=== PATIENT | male | born 1940 | race Caucasian/White ===

== ENCOUNTER 2016-12-10 07:25 | Day surgery (SDC) | payer BC ==
[2016-12-09 13:21] VITALS: BMI 35.2
[2016-12-10] MEDS ORDERED: MIDAZOLAM HCL 2 MG/2 ML SINGLE DOSE VIAL ONE ×2 (09:12)
[2016-12-10] MEDS ORDERED: oxyCODONE HCL 5 MG TABLET PO PRN (09:28)
[2016-12-10] MEDS ORDERED: ONDANSETRON 4 MG/2 ML VIAL IVPUSH PRN (09:28)
[2016-12-10] MEDS ORDERED: LACTATED RINGERS SOLUTION 1,000 ML IV SCH (09:30)
--- NOTE | 2016-12-10 09:43 | HP ---
Satellite H - Chief Complaint Chief Complaint: left ankle fx - Past Medical History Allergies/Adverse Reactions: Allergies Allergy/AdvReac Type Severity Reaction Status Date / Time No Known Allergies Allergy Verified 12/10/16 08:22 - Current Medications Current Medications: Home Medications Medication Instructions Recorded Felodipine [Plendil] 5 mg PO DAILY 05/25/15 Simvastatin [Zocor -] 10 mg PO HS 05/25/15 Hydrocodone/Acetaminophen [[place] 1 - 2 each PO Q6H #50 tablet MDD 8 12/10/16 5-325 Tablet] Ibuprofen [Advil -] 400 mg PO PRN PRN 12/10/16 Satellite Physical Exam - Physical Examination Vital Signs: Vital Signs Period Temp Pulse Resp BP Sys/[place] Pulse Ox Last 24 Hr 97.8 F-97.8 F 68-68 20-20 139-139/89-89 94 General Appearance: Well Nourished, Well Developed, Alert & Oriented x3 ENT: Clear Lung: Normal air movement Heart: Regular rate & rhythm Extremities: Other (left ankle swelling, ecchymosis, + ttp, dcr rom, nvi xrays show left distal fibula fx- displaced) Neurological: Intact, Alert, Oriented Satellite Impression/Plan - Impression/Plan Impression: left ankle fx Operative Procedure: left ankle orif Date to be Performed: 12/10/16
[2016-12-10] MEDS ORDERED: ceFAZolin SODIUM 1 GM VIAL ONE (09:49)
[2016-12-10] MEDS ORDERED: ceFAZolin SODIUM 1 GM VIAL IVPB ONE (09:55)
--- NOTE | 2016-12-10 10:40 | OP ---
Operative Note - Note: Operative Date: 12/10/16 Pre-Operative Diagnosis: left ankle fibula fracture Operation: left ankle ORIF, fibula Implants: [place] low profile titanium distal fibular plate Surgeon: Justo Ha Lotus Notes Developer: Mainor De La Garza Anesthesiologist/DETECTIVE: Doris Baptiste Anesthesia: General, Spinal Estimated Blood Loss (mls): 0 Drains, Volume Out (mls): 0 Blood Volume Replaced (mls): 0 Fluid Volume Replaced (mls): 500 Operative Report Dictated: Yes
[2016-12-10 13:14] VITALS: TEMP 97.4
[2016-12-10 14:36] VITALS: BP 142/82; PULSE 80
--- NOTE | 2016-12-11 08:02 | OP ---
DATE OF OPERATION: 12/10/2016 PREOPERATIVE DIAGNOSIS: Left ankle distal fibular fracture. POSTOPERATIVE DIAGNOSIS: Left ankle distal fibular fracture. PROCEDURE: Left ankle open reduction internal fixation, lateral malleolus. SURGEON: Luisana Barry MD LOG POND WORKER: YAA Solitario. FINANCE ASSISTANT: Doris Baptiste CRNA ANESTHESIA: Spinal anesthesia with sedation. DRAINS: None. COMPLICATIONS: None. SPECIMENS: None. BLOOD LOSS: None. BLOOD GIVEN: None. FLUID REPLACEMENT: 500 mL. INDICATIONS: This patient is a 76-year-old male with a preoperative diagnosis of a displaced left ankle distal fibular fracture. After understanding the potential risks, complications, alternatives, and benefits of surgery versus nonsurgical treatment, the patient elected to undergo this procedure. I spoke with his family, as well. They all understand the potential risks and complications. DESCRIPTION OF PROCEDURE: The patient was brought to the operating room. Peripheral IV placed. IV sedation given. IV Ancef, 2 g, was given. Spinal anesthesia was induced. Mild IV sedation was given. Tourniquet was applied to the left upper thigh. A bump was placed under the left aby-pelvis. Left lower extremity was prepped and draped in sterile fashion, elevated, exsanguinated with an Esmarch bandage. Tourniquet was inflated to 275 mmHg. A longitudinal incision was marked out with a marking pen and made with a No. 10 scalpel blade. Subcutaneous hemostasis was achieved with a Bovie cautery. Dissection done onto the distal fibula. Subperiosteal dissection was made with periosteal elevator. Periosteum and blunt hematoma and muscle debris were taken out of the fracture site. Reduction was performed. Irrigation was used to clean up the fracture site, and alligator forceps was used to do a reduction. X-rays were taken in multiple planes, and everything looked quite good in AP, lateral, and oblique planes. Medial aspect and ankle mortise looked good. The reduction looked quite good laterally. Therefore, a [place] low-profile titanium 6-0 plate was placed on and held in place with K-wires. Again, x-rays were taken, and I was quite happy with the position of the fracture fragments and the hardware, and therefore using the standard technique, I used a 2.5-mm drill bit to put in 3.5-mm screws. First I put in a lag screw, this was 22 mm in length, fully threaded, using the 2.5- and then the 3.5-mm drill bit in standard fashion. The clamps were removed, and this screw held the fracture in place. Next, I put on the plate and put in four fully threaded locking distal screws. I then put in three fully threaded 3.5-mm screws, one non-locking, two locking bicortical proximal to the fracture site. X-rays were taken multiple AP, lateral, and oblique planes. Overall, I was quite happy with the fracture fragments, the position of the ankle mortise and the hardware. Area was copiously irrigated and washed out. Closure was done with 0 Vicryl with the deep fascia over the plate, 2-0 Vicryl used to close the deep dermal layer. Final skin reapproximation was done with row of ellie. The area was then washed and dried and covered with Xeroform, 4x4 gauze, Webril, and a 6-inch Ortho-Glass. Posterior splint was applied, wrapped with two German bandages. The tourniquet was taken down after a total tourniquet time of 36 minutes. There were no complications during the case. Patient tolerated the procedure quite well and was brought to the ambulatory recovery room in stable condition. LUISANA BARRY M.D. [id number]
== END 2016-12-10 14:50 | disposition home or self-care (01) ==
LOC: JASU-SURG 07:25
PROVIDERS: ATTEND Orthopaedic Surgery
PROC: 0QSK04Z Reposition Left Fibula with Internal Fixation Device, Open Approach (ICD-10-PCS; principal; 2016-12-10 09:00)
DX: S82.492A Other fracture of shaft of left fibula, initial encounter for closed fracture (principal); X58.XXXA Exposure to other specified factors, initial encounter; Y93.9 Activity, unspecified; Y92.9 Unspecified place or not applicable; Y99.9 Unspecified external cause status
CPT/HCPCS: 76000-TC; 94760

== ENCOUNTER 2021-04-05 04:16 | Day surgery (SDC) | payer BC ==
[2021-04-02 15:28] VITALS: BMI 35.2
[~2021-04-05 04:16] MED LIST: DEXAMETHASONE SOD PHOSPHATE 10 MG/1 ML VIAL IVPUSH ONE; IOHEXOL 180 MG/1 ML ML IT ONE; LIDOCAINE 1% P/F 10 MG/ML VIAL INF ONE
[2021-04-05] MEDS ORDERED: LIDOCAINE HCL/PF 1% SDV 5ML VIAL ONE (07:34)
[2021-04-05] MEDS ORDERED: DEXAMETHASONE SOD PHOSPHATE 10 MG/1 ML VIAL ONE (07:34)
[2021-04-05] MEDS ORDERED: LIDOCAINE 1% P/F 10 MG/ML VIAL INF ONE (09:33)
[2021-04-05] MEDS ORDERED: IOHEXOL 180 MG/1 ML ML IT ONE (09:33)
[2021-04-05] MEDS ORDERED: DEXAMETHASONE SOD PHOSPHATE 10 MG/1 ML VIAL IVPUSH ONE (09:33)
[2021-04-05 10:03] VITALS: BP 143/78; PULSE 77; TEMP 98.4
== END 2021-04-05 10:30 | disposition home or self-care (01) ==
LOC: JASU-SURG 04:16
PROVIDERS: ATTEND Pain Medicine Pain Medicine
PROC: 3E0R33Z Introduction of Anti-inflammatory into Spinal Canal, Percutaneous Approach (ICD-10-PCS; 2021-04-05)
PROC: 3E0R3BZ Introduction of Anesthetic Agent into Spinal Canal, Percutaneous Approach (ICD-10-PCS; principal; 2021-04-05 08:45)
DX: M54.16 Radiculopathy, lumbar region (principal)
CPT/HCPCS: 76000-TC-FY; J1100

== ENCOUNTER 2021-05-07 04:41 | Day surgery (SDC) | payer BC ==
[2021-05-06 15:30] VITALS: BMI 30.4
[2021-05-07] MEDS ORDERED: IOHEXOL 180 MG/1 ML ML IJ ONE ×2 (11:17)
[2021-05-07] MEDS ORDERED: LIDOCAINE HCL 1% PRESERVATIVE FREE - 30ML VIAL INF ONE (11:17)
[2021-05-07] MEDS ORDERED: DEXAMETHASONE SOD PHOSPHATE 4 MG/1 ML VIAL IVPUSH ONE (11:18)
[2021-05-07 13:02] VITALS: BP 131/79; PULSE 83; TEMP 98
== END 2021-05-07 12:30 | disposition home or self-care (01) ==
LOC: JASU-SURG 04:41
PROVIDERS: ATTEND Pain Medicine Pain Medicine
PROC: 3E0R33Z Introduction of Anti-inflammatory into Spinal Canal, Percutaneous Approach (ICD-10-PCS; 2021-05-07)
PROC: 3E0R3BZ Introduction of Anesthetic Agent into Spinal Canal, Percutaneous Approach (ICD-10-PCS; principal; 2021-05-07 09:15)
DX: M54.16 Radiculopathy, lumbar region (principal)
CPT/HCPCS: 76000-TC-FY

== ENCOUNTER 2024-04-22 07:17 | Inpatient (IN) | payer BC, OTHER ==
[2024-04-22 07:40] LABS: BASO % 0.9 % (0-2.0); HEMATOCRIT 36.4 % (35.4-49); HEMOGLOBIN 12.6 GM/dL (11.7-16.9); LYMPH % 21.5 % (8-40); MCH 32.9 pg (25.7-33.7); MCHC 34.5 g/dl (32.0-35.9); MEAN CELL VOLUME 95.2 fl (80-96); MEAN PLT VOLUME 7.3 fl (7.5-11.1); MONO % 8.9 % (3.8-10.2); NEUT % 67.7 % (42.8-82.8); PLATELET COUNT 229 10^3/uL (134-434); RBC 3.82 M/mm3 (4.00-5.60); RDW 13.4 % (11.9-15.9); WHITE BLOOD COUNT 10.9 K/mm3 (4.0-10.0)
[2024-04-22 08:05] LABS: POTASSIUM 4.3 mmol/L (3.5-5.1)
[2024-04-22 08:12] LABS: ALBUMIN 3.9 g/dl (3.4-5.0); BLOOD UREA NITROGEN 18.6 mg/dL (7-18); CALCIUM 9.1 mg/dL (8.5-10.1)
[2024-04-22 08:15] LABS: CREATININE 0.9 mg/dL (0.55-1.3)
[2024-04-22 08:17] LABS: BILIRUBIN,TOTAL 0.5 mg/dL (0.2-1); TOT PROT 6.8 g/dl (6.4-8.2)
[2024-04-22 08:20] LABS: INR 1.03 (0.83-1.09); PROTHROMBIN TIME (PATIENT) 11.6 SEC (9.7-13.0)
[2024-04-22 08:23] LABS: ACTIVATED PTT 29.2 SECONDS (25.2-36.5)
[2024-04-22 12:20] LABS: BASO % 0.9 % (0-2.0); EOS % 0.3 % (0-4.5); HEMATOCRIT 34.2 % (35.4-49); HEMOGLOBIN 11.8 GM/dL (11.7-16.9); LYMPH % 20.3 % (8-40); MCH 32.4 pg (25.7-33.7); MCHC 34.5 g/dl (32.0-35.9); MEAN CELL VOLUME 93.9 fl (80-96); MEAN PLT VOLUME 6.9 fl (7.5-11.1); MONO % 8.1 % (3.8-10.2); NEUT % 70.4 % (42.8-82.8); PLATELET COUNT 227 10^3/uL (134-434); RBC 3.64 M/mm3 (4.00-5.60); RDW 13.7 % (11.9-15.9); WHITE BLOOD COUNT 10.1 K/mm3 (4.0-10.0)
[2024-04-22] MEDS ORDERED: ACETAMINOPHEN INJECTION 100 ML ONE (12:29)
[2024-04-22] MEDS: ACETAMINOPHEN 1000 MG/100 ML BAG IVPB ONE (12:37)
[2024-04-22 16:36] VITALS: BMI 31.6
[2024-04-23 08:47] LABS: BASO % 0.8 % (0-2.0); HEMATOCRIT 32.3 % (35.4-49); LYMPH % 24.6 % (8-40); MCH 32.8 pg (25.7-33.7); MEAN CELL VOLUME 96.4 fl (80-96); MEAN PLT VOLUME 7.5 fl (7.5-11.1); MONO % 10.1 % (3.8-10.2); NEUT % 63.5 % (42.8-82.8); PLATELET COUNT 203 10^3/uL (134-434); RBC 3.35 M/mm3 (4.00-5.60); RDW 13.6 % (11.9-15.9); WHITE BLOOD COUNT 7.2 K/mm3 (4.0-10.0)
[2024-04-23 09:11] LABS: POTASSIUM 3.7 mmol/L (3.5-5.1)
[2024-04-23 09:14] LABS: CALCIUM 8.9 mg/dL (8.5-10.1)
[2024-04-23 09:15] LABS: BLOOD UREA NITROGEN 10.5 mg/dL (7-18)
[2024-04-23 09:18] LABS: CREATININE 0.8 mg/dL (0.55-1.3)
[2024-04-23] MEDS ORDERED: ACETAMINOPHEN 325 MG TABLET (FP) PO PRN (10:43)
[2024-04-23] MEDS: POLYETHYLENE GLYCOL (HEALTHYLAX) 3350 17 GM PACKET PO SCH (15:51)
[2024-04-23] MEDS: amLODIPine BESYLATE 5 MG TABLET (FP) PO SCH (18:18)
[2024-04-24] MEDS: PEG 3350/NA SULF BICARB CL/KCL 4000 ML SOLN.RECON PO ONE (09:23)
[2024-04-24 09:50] LABS: BASO % 0.5 % (0-2.0); EOS % 1.6 % (0-4.5); HEMATOCRIT 34.4 % (35.4-49); HEMOGLOBIN 11.9 GM/dL (11.7-16.9); LYMPH % 25.9 % (8-40); MCH 32.9 pg (25.7-33.7); MCHC 34.6 g/dl (32.0-35.9); MEAN CELL VOLUME 95.2 fl (80-96); MEAN PLT VOLUME 7.5 fl (7.5-11.1); MONO % 9.2 % (3.8-10.2); NEUT % 62.8 % (42.8-82.8); PLATELET COUNT 232 10^3/uL (134-434); RBC 3.62 M/mm3 (4.00-5.60); RDW 13.8 % (11.9-15.9); WHITE BLOOD COUNT 8.9 K/mm3 (4.0-10.0)
[2024-04-24 09:52] LABS: INR 0.99 (0.83-1.09); PROTHROMBIN TIME (PATIENT) 11.2 SEC (9.7-13.0)
[2024-04-24 10:26] LABS: POTASSIUM 3.5 mmol/L (3.5-5.1)
[2024-04-24 10:28] LABS: CALCIUM 9.2 mg/dL (8.5-10.1)
[2024-04-24 10:29] LABS: ALBUMIN 3.8 g/dl (3.4-5.0); BLOOD UREA NITROGEN 9.4 mg/dL (7-18); MAGNESIUM 1.9 mg/dL (1.8-2.4)
[2024-04-24 10:32] LABS: CREATININE 0.8 mg/dL (0.55-1.3)
[2024-04-24 10:33] LABS: TOT PROT 7.2 g/dl (6.4-8.2)
[2024-04-24 10:34] LABS: BILIRUBIN,TOTAL 0.7 mg/dL (0.2-1)
[2024-04-24] MEDS: BISACODYL 5 MG TABLET.DR (FP) PO ONE (21:30)
[2024-04-25 10:08] LABS: BASO % 0.6 % (0-2.0); EOS % 1.5 % (0-4.5); HEMATOCRIT 32.6 % (35.4-49); HEMOGLOBIN 11.2 GM/dL (11.7-16.9); LYMPH % 19.9 % (8-40); MCH 32.7 pg (25.7-33.7); MCHC 34.2 g/dl (32.0-35.9); MEAN CELL VOLUME 95.6 fl (80-96); MEAN PLT VOLUME 7.3 fl (7.5-11.1); MONO % 10.1 % (3.8-10.2); NEUT % 67.9 % (42.8-82.8); PLATELET COUNT 229 10^3/uL (134-434); RBC 3.41 M/mm3 (4.00-5.60); RDW 13.7 % (11.9-15.9); WHITE BLOOD COUNT 8.1 K/mm3 (4.0-10.0)
[2024-04-25] MEDS: metoPROLOL SUCCINATE 25 MG TAB.SR.24H (FP) PO SCH (18:11)
[2024-04-26 10:30] LABS: BASO % 0.5 % (0-2.0); EOS % 1.3 % (0-4.5); HEMATOCRIT 33.3 % (35.4-49); HEMOGLOBIN 11.3 GM/dL (11.7-16.9); LYMPH % 18.2 % (8-40); MCH 32.6 pg (25.7-33.7); MCHC 34.1 g/dl (32.0-35.9); MEAN CELL VOLUME 95.5 fl (80-96); MEAN PLT VOLUME 7.4 fl (7.5-11.1); PLATELET COUNT 236 10^3/uL (134-434); RBC 3.49 M/mm3 (4.00-5.60); RDW 13.8 % (11.9-15.9); WHITE BLOOD COUNT 9.2 K/mm3 (4.0-10.0)
[2024-04-26 10:51] LABS: POTASSIUM 3.3 mmol/L (3.5-5.1)
[2024-04-26 11:03] LABS: ALBUMIN 3.7 g/dl (3.4-5.0); CALCIUM 9.3 mg/dL (8.5-10.1)
[2024-04-26 11:04] LABS: BLOOD UREA NITROGEN 9.8 mg/dL (7-18)
[2024-04-26 11:06] LABS: CREATININE 0.9 mg/dL (0.55-1.3)
[2024-04-26 11:08] LABS: BILIRUBIN,TOTAL 0.8 mg/dL (0.2-1); TOT PROT 6.7 g/dl (6.4-8.2)
[2024-04-26] MEDS: POTASSIUM CHLORIDE TABS 20 MEQ TABLET.ER (FP) PO ONE (11:15)
[2024-04-26] MEDS: POTASSIUM CHLORIDE TABS 20 MEQ TABLET.ER (FP) PO SCH (11:18)
[2024-04-26 15:21] VITALS: BP 132/73; PULSE 74; RESP 20; TEMP 98.2
== END 2024-04-26 15:10 | disposition home or self-care (01) | DRG 379 ==
LOC: JER 07:17 → JERBED 10:38 → J8W 13:00
PROVIDERS: ADMIT Internal Medicine; ATTEND Nurse Practitioner Acute Care
PROC: 0DBE8ZX Excision of Large Intestine, Via Natural or Artificial Opening Endoscopic, Diagnostic (ICD-10-PCS; principal; 2024-04-25 12:45)
DX: K57.93 Diverticulitis of intestine, part unspecified, without perforation or abscess with bleeding (principal); F32.A Depression, unspecified; I10 Essential (primary) hypertension; K76.89 Other specified diseases of liver; E78.5 Hyperlipidemia, unspecified; H91.90 Unspecified hearing loss, unspecified ear; K64.8 Other hemorrhoids; I71.40 Abdominal aortic aneurysm, without rupture, unspecified; K63.5 Polyp of colon
CPT/HCPCS: 36415; 74174-TC; 74178-TC; 80048; 80053; 82728; 82962; 83540; 83550; 83735; 85025; 85610; 85730; 86900; 86922; 88305-TC; 93005; 93010; 93306-TC; 99285-25; J0131; Q9967